=== PATIENT | male | born 1945 | race Caucasian/White ===

== ENCOUNTER 2018-12-23 22:46 | Observation (INO) ==
[2018-12-24] MEDS ORDERED: Sod Chloride 0.9% Inj 1,000 ML IV.SIG ONE (02:40)
--- NOTE | 2018-12-24 03:15 | CT ---
EXAM DATE: 12/24/2018 3:06 AM EST AGE/SEX: 73 years / Male INDICATIONS: Weakness, difficulty walking CLINICAL DATA: This is the patient's initial encounter. Patient reports that signs and symptoms have been present for 1 day and indicates a pain score of 0/10. MEDICAL/SURGICAL HISTORY: Carcinoma, bone. . BKA RADIATION DOSE: 60.45 CTDI (mGy) COMPARISON: No prior exams available for comparison. TECHNIQUE: CT of the head without contrast. Using automated exposure control and adjustment of the mA and/or kV according to patient size, radiation dose was kept as low as reasonably achievable to ob tain optimal diagnostic quality images. DICOM format image data is available electronically for revi ew and comparison. FINDINGS: Cerebrum: The ventricles are normal for age. No evidence of midline shift, mass lesion, hemorrhage or acute infarction. No extraaxial fluid collections are seen. Posterior Fossa: The cerebellum and brainstem are intact. The 4th ventricle is midline. The cerebe llopontine angle is unremarkable. Extracranial: The visualized portion of the orbits is intact. Skull: The calvaria is intact. No evidence of skull fracture. CONCLUSION: Negative CT Head non contrast. . . Electronically signed by: Dennis Herrera MD Board Certified Radiologist 12/24/2018 3:14 AM EST
--- NOTE | 2018-12-24 03:16 | ED ---
HPI General Chief complaint: Weakness Stated complaint: weakness since last night Time Seen by Provider: 12/24/18 02:40 Source: patient Mode of arrival: ambulatory Limitations: no limitations History of Present Illness HPI Narrative: 73-year-old male presents to the emergency department for evaluation of generalized weakness. According to the patient he was visiting a friend on Tuesday evening and while watching TV fell asleep on the couch he thinks around midnight. Patient reportedly slept overnight until approximately 4 PM or 6 PM on Tuesday. Patient noted when he tried to get up that his legs were weak and gave way on him. Patient states he had to crawl to gas bedroom where his friend helped him sit up on the bed. Patient was having difficulty holding a Coca-Cola bottle to drink a beverage. Patient reports that his friend told him that earlier in the morning she had tried to awaken him but he would not awaken or respond so she let him sleep longer. Patient states he is never had bilateral lower extremity or upper extremity weakness. Patient states that he was brought to the ED by his friend by car. 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 Patient states on and Tuesday he was experiencing severe phantom pain so took additional gabapentin. Tuesday night he took double his evening dose of gabapentin as well as his daily dose of methadone had been consumed his phenobarbital had been taken and did drink 2 beers. Patient had no recent febrile illness. Patient's had no recent respiratory illness. Patient denies any recent virus. Patient has been taking no antibiotics. Patient had no chest pain or shortness of breath. Patient has been somewhat depressed because his brother recently . Patient is intermittently tearful when he shares this information. Patient states that he has had no head trauma or neck or back injury. Patient does state however when he did try to stand up from the couch she did fall to his knees and then had to crawl to the bedroom. Patient has not stood since the initial identification of generalized weakness. Patient has urinated for the first time since Tuesday night here in the emergency department. Patient's had no bowel incontinence. Patient does not report any new numbness or tingling of the lower extremities and does not report any saddle anesthesia. Patient states he has had lumbar disc herniation in the past and does not have any back pain and has had no recent injury to his lower back. Patient states that his upper extremity weakness has improved while waiting to be seen. Patient reports he did require some assistance transferring from the wheelchair to the exam stretcher. MD Complaint: Reports generalized weakness, lack of energy and difficulty walking; Denies focal weakness, numbness and tingling Onset (ago): hour(s) (>24 hr) Duration: constant and improved Location: Reports generalized, LUE, RUE, LLE and RLE Migration: Reports none Severity: severe Severity scale (1-10): 7 Quality: Denies tingling, numbness, aching, crushing, sharp and dull Relieving factors: none Exacerbating factors: none Context: Reports depression (brother recently ); Denies new medication, recent illness, recent surgery, trauma/injury and history of similar Associated symptoms: Reports other (took extra neurontin, drank alcohol is chronically prescribed methadone and phenobarbital); Denies chest pain, confusion, dark stools, diaphoresis, dysuria, easy bruising, fever/chills, headaches, loss of appetite, nausea/vomiting, myalgias, rash, shortness of breath and syncope Related Data Home Medications Medication Instructions Recorded Confirmed amlodipine 5 mg PO DAILY 12/24/18 12/24/18 aspirin [Aspir-81] 81 mg PO DAILY 12/24/18 12/24/18 finasteride 5 mg PO DAILY 12/24/18 12/24/18 gabapentin 600 mg PO TID 12/24/18 12/24/18 meloxicam 7.5 mg PO DAILY 12/24/18 12/24/18 methadone 10 mg PO TID 12/24/18 12/24/18 mirtazapine See Label Instructions .ROUTE 12/24/18 12/24/18 .COMPLEX niacin 500 mg PO DAILY 12/24/18 12/24/18 phenobarbital 64.8 mg PO BID 12/24/18 12/24/18 ramipril 10 mg PO BID 12/24/18 12/24/18 Allergies Allergy/AdvReac Type Severity Reaction Status Date / Time Penicillins Allergy Rash Verified 12/24/18 02:40 Review of Systems ROS: all other systems reviewed are negative [facility] Medical History Medical History History of bone cancer (Acute) History of herniated intervertebral disc (Acute) History of high blood pressure (Acute) Hx of right BKA (Acute) Surgical History Surgical History History of back surgery (Acute) History of orthopedic surgery (Acute) Social History Social History Substance History: No History of Abuse Smoking Status: Former smoker Tobacco Type: Cigarettes How Often Do You Have a Drink Containing Alcohol: 2 to 3 times a week Recent Travel in [facility] within the Last 8 Weeks: No Recent Out of Country Travel within the Last 8 Weeks: No Immunization History Tetanus Immunization: >5 Years Exam Narrative Exam Narrative: GENERAL: Well-developed well-nourished male no acute distress no respiratory distress GCS of 15 SKIN: Focused skin assessment warm/dry. HEAD: Atraumatic. Normocephalic. EYES: Pupils equal and round. No scleral icterus. No injection or drainage. ENT: No nasal bleeding or discharge. Mucous membranes pink and moist. NECK: Trachea midline. No JVD. CARDIOVASCULAR: Regular rate and rhythm. No murmur appreciated. RESPIRATORY: No accessory muscle use. Clear to auscultation. Breath sounds equal bilaterally. GASTROINTESTINAL: Abdomen soft, non-tender, nondistended. Hepatic and splenic margins not palpable. MUSCULOSKELETAL: No obvious deformities. No clubbing. No cyanosis. No edema. NEUROLOGICAL: Awake and alert. GCS 15. No obvious cranial nerve deficits. Motor grossly within normal limits. No pronator drift. Sensory exam intact as tested. Normal speech. PSYCHIATRIC: Appropriate mood and affect; insight and judgment normal. Course Initial Documented Vital Signs Temperature 99.7 F H 12/23/18 23:55 Pulse Rate 61 12/23/18 23:55 Respiratory Rate 18 12/23/18 23:55 Blood Pressure 136/60 12/23/18 23:55 Last Documented Vital Signs Temperature 99.7 F H 12/23/18 23:55 Pulse Rate 61 12/23/18 23:55 Respiratory Rate 18 12/23/18 23:55 Blood Pressure 136/60 12/23/18 23:55 Pulse Oximetry 95 12/24/18 04:09 Critical Care Time Critical Care Time: Yes Total Critical Care Time: 30 Attestation: Aggregate critical care time was 30 minutes. Time to perform other separately billable procedures was not included in the critical care time. My time did not include minutes spent treating any other patients simultaneously or on activities that did not directly contribute to the patient's treatment. The services I provided to this patient were to treat and/or prevent clinically significant deterioration that could result in: Arrhythmia, respiratory failure , I provided critical care services requiring my management, as noted below: Chart data review, documentation time, medication orders and management, vital sign assessments/reviewing monitor data, ordering and reviewing lab tests, ordering and interpreting/reviewing x-rays and diagnostic studies, care of the patient and discussion of the patient with the admitting physicians. Medical Decision Making MDM Narrative Medical decision making narrative: [facility] service for observation admission for generalized weakness that appears to be slightly improving per patient's -zjyw-gui male with new onset generalized weakness that seems to be only slightly improved since arrival to the emergency department. Patient does admit to taking extra Neurontin last evening before onset of symptoms. 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 Patient had no trauma or injury. Patient denies any low back pain consistent with his history of herniated disc disease no lower extremity paresthesias or saddle anesthesia. Patient had no recent febrile illness. Patient had no previous history of similar type weakness. Patient had no recent illness or viral illness. Does not note symptoms to be ascending in nature or descending in nature. At times symptoms seem to be intermittent or sporadic. No prior history of MS. IV access obtained specimens collected and sent for resulting imaging studies ordered. Denies seizure and friend with no witness of seizure although was not with him the whole time. CT brain noncontrast reveals no acute abnormality chest x-ray is normal CBC with automated differential total white cell count is in normal range 7300 with hemoglobin of 12.8 and platelet count normal at 229,000 with normal automated differential chemistries remarkable for acute renal insufficiency BUN of 30 and a creatinine of 1.70 bicarb is normal potassium calcium magnesium values are normal range Serum ammonia level is not elevated. Lactic acid 1.0, not elevated TSH: 1.950, not elevated Troponin I less than 0.02, not elevated; CK total is elevated at 535 however MB percent is only 2.4% this is not elevated; EKG is normal sinus rhythm rate [address] elevation injury pattern or ectopy noted artifact is present at baseline Urinalysis normal Urine drug screen positive for barbiturates patient does take phenobarbital Serum alcohol less than 3 Phenobarbital level remains pending Patient's case discussed with and possible exposure to polypharmacy; may need neurology consult and MR imaging of the brain and spine. Medical Screen Exam Complete: Yes Emergency Medical Condition: Yes Differential Diagnosis Differential Diagnosis: Generalized weakness, CVA, TIA, transverse myelitis, myasthenia gravis, multiple sclerosis, polypharmacy, depression, dehydration, MERCEDES, rhabdomyolysis Medical Records no prior visits Lab Data Lab results reviewed: Yes I reviewed the patient's lab results. Result diagrams: 12/24/18 03:10 12/24/18 03:10 Lab Results 12/24/18 12/24/18 12/24/18 Range/Units 02:45 02:45 03:10 CBC w Diff Auto diff final WBC 7.3 (4.0-11.0) th/mm3 RBC 4.17 L (4.50-5.90) mil/mm3 Hgb 12.8 L (13.0-17.0) gm/dL Hct 38.3 L (39.0-51.0) % MCV 91.9 (80.0-100.0) fL MCH 30.6 (27.0-34.0) pg MCHC 33.3 (32.0-36.0) % RDW 11.6 (11.6-17.2) % Plt Count 229 (150-450) th/mm3 MPV 8.1 (7.0-11.0) fL Neut % (Auto) 61.0 (16.0-70.0) % Lymph % (Auto) 28.7 (9.0-44.0) % [place] % (Auto) 7.1 (0.0-8.0) % Eos % (Auto) 2.4 (0.0-4.0) % Baso % (Auto) 0.8 (0.0-2.0) % Neut # (Auto) 4.4 (1.8-7.7) th/mm3 Lymph # (Auto) 2.1 (1.0-4.8) th/mm3 [place] # (Auto) 0.5 (0.0-0.9) th/mm3 Eos # (Auto) 0.2 (0.0-0.4) th/mm3 Baso # (Auto) 0.1 (0.0-0.2) th/mm3 WBC Differential . Differential Comment . Sodium (136-145) meq/L Potassium (3.5-5.1) meq/L Chloride (98-107) meq/L Carbon Dioxide (21.0-32.0) meq/L Anion Gap (5-15) meq/L BUN (7-18) mg/dL Creatinine (0.60-1.30) mg/dL Estimated GFR (>89) mL/min Random Glucose (74-106) mg/dL Lactic Acid (0.4-2.0) mmol/L Calcium (8.5-10.1) mg/dL Magnesium (1.5-2.5) mg/dL Total Bilirubin (0.2-1.0) mg/dL AST (15-37) U/L ALT (12-78) U/L Alkaline Phosphatase (45-117) U/L Ammonia (11-32) mcmol/L Total Creatine Kinase (39-308) U/L CK-MB (CK-2) (0.5-3.6) ng/mL CK-MB (CK-2) % (0.0-4.0) % Troponin I (0.02-0.05) ng/mL Total Protein (6.4-8.2) g/dL Albumin (3.4-5.0) g/dL TSH (0.358-3.740) uIU/mL Urine Color Yellow (Yellw/Straw) Urine Clarity Clear (Clear) Urine pH 5.5 (5.0-8.5) Ur Specific [place] Greater/equal 1.030 (1.002-1.035) Urine Protein Negative (Neg-Trace) mg/dL Urine Glucose (UA) Negative (Negative) mg/dL Urine Ketones Trace H (Negative) mg/dL Urine Occult Blood Negative (Negative) Urine Nitrate Negative (Negative) Urine Bilirubin Negative (Negative) Urine Urobilinogen 0.2 (Less than 2) mg/dL Ur Leukocyte Esterase Negative (Negative) Urine WBC 0-5 (0-5) /hpf Amorphous Sediment Few H (None) /hpf Urine Bacteria Few H (None) /hpf Hyaline Casts 4-10 H (0-3) /lpf Urine Mucus Moderate H (Occasional) /lpf Micro UA Comment Culture not ind Ur Microscopic Review Microscopic reviewed Urine Culture Comments Culture not ind Urine Opiates Screen Neg (Neg) Ur Barbiturates Screen Pos H (Neg) Ur Amphetamines Screen Neg (Neg) Phenobarbital (15.0-40.0) mcg/mL U Benzodiazepines Scrn Neg (Neg) Urine Cocaine Screen Neg (Neg) U Cannabinoids Screen Neg (Neg) Serum Alcohol (0-5) mg/dL 12/24/18 12/24/18 12/24/18 Range/Units 03:10 03:10 03:10 CBC w Diff WBC (4.0-11.0) th/mm3 RBC (4.50-5.90) mil/mm3 Hgb (13.0-17.0) gm/dL Hct (39.0-51.0) % MCV (80.0-100.0) fL MCH (27.0-34.0) pg MCHC (32.0-36.0) % RDW (11.6-17.2) % Plt Count (150-450) th/mm3 MPV (7.0-11.0) fL Neut % (Auto) (16.0-70.0) % Lymph % (Auto) (9.0-44.0) % [place] % (Auto) (0.0-8.0) % Eos % (Auto) (0.0-4.0) % Baso % (Auto) (0.0-2.0) % Neut # (Auto) (1.8-7.7) th/mm3 Lymph # (Auto) (1.0-4.8) th/mm3 [place] # (Auto) (0.0-0.9) th/mm3 Eos # (Auto) (0.0-0.4) th/mm3 Baso # (Auto) (0.0-0.2) th/mm3 WBC Differential Differential Comment Sodium 134 L (136-145) meq/L Potassium 4.3 (3.5-5.1) meq/L Chloride 102 (98-107) meq/L Carbon Dioxide 26.5 (21.0-32.0) meq/L Anion Gap 6 (5-15) meq/L BUN 30 H (7-18) mg/dL Creatinine 1.70 H (0.60-1.30) mg/dL Estimated GFR 40 L (>89) mL/min Random Glucose 86 (74-106) mg/dL Lactic Acid 1.0 (0.4-2.0) mmol/L Calcium 8.3 L (8.5-10.1) mg/dL Magnesium 2.4 (1.5-2.5) mg/dL Total Bilirubin 0.4 (0.2-1.0) mg/dL AST 23 (15-37) U/L ALT 25 (12-78) U/L Alkaline Phosphatase 181 H (45-117) U/L Ammonia 26 (11-32) mcmol/L Total Creatine Kinase 535 H (39-308) U/L CK-MB (CK-2) 13.1 H (0.5-3.6) ng/mL CK-MB (CK-2) % 2.4 (0.0-4.0) % Troponin I Less than 0.02 L (0.02-0.05) ng/mL Total Protein 7.8 (6.4-8.2) g/dL Albumin 4.0 (3.4-5.0) g/dL TSH 1.950 (0.358-3.740) uIU/mL Urine Color (Yellw/Straw) Urine Clarity (Clear) Urine pH (5.0-8.5) Ur Specific [place] (1.002-1.035) Urine Protein (Neg-Trace) mg/dL Urine Glucose (UA) (Negative) mg/dL Urine Ketones (Negative) mg/dL Urine Occult Blood (Negative) Urine Nitrate (Negative) Urine Bilirubin (Negative) Urine Urobilinogen (Less than 2) mg/dL Ur Leukocyte Esterase (Negative) Urine WBC (0-5) /hpf Amorphous Sediment (None) /hpf Urine Bacteria (None) /hpf Hyaline Casts (0-3) /lpf Urine Mucus (Occasional) /lpf Micro UA Comment Ur Microscopic Review Urine Culture Comments Urine Opiates Screen (Neg) Ur Barbiturates Screen (Neg) Ur Amphetamines Screen (Neg) Phenobarbital 21.9 (15.0-40.0) mcg/mL U Benzodiazepines Scrn (Neg) Urine Cocaine Screen (Neg) U Cannabinoids Screen (Neg) Serum Alcohol Less than 3 (0-5) mg/dL Imaging Data Radiologist's impression: Head CT 12/24/18 02:40 CONCLUSION: Negative CT Head non contrast. . . Chest X-Ray 12/24/18 04:30 CONCLUSION: No acute disease ECG Data EKG Prior to Arrival: No Attestation: I personally reviewed and interpreted this ECG as follows: (EKG: Normal sinus rhythm rate [address] elevation injury pattern or ectopy noted artifact is present at baseline) Discharge Plan Discharge Disposition Patient Disposition: ED Admit(ED Internal Use Only) Discharge Condition Condition: Stable Discharge Order Discharge Orders: ED Use Only Admit Order (Routine); Ordered 12/24/18 Ordered By: Carly Do Discharge Details Diagnosis: Generalized muscle weakness, Renal insufficiency, At risk for polypharmacy Physicians Team ED Provider: Carly Do Attending Provider: Myron Pringle Status ED Status: Admitted Observation Patient
[2018-12-24 03:24] LABS: Bilirubin,Urine Negative (Negative); Clarity,Urine Clear (Clear); Color,Urine Yellow (Yellw/Straw); Glucose,Urine (UA) Negative (Negative); Leukocyte Esterase,Urine Negative (Negative); Nitrite,Urine Negative (Negative); PH,Urine 5.5 (5.0-8.5); Specific Gravity,Urine Greater/Equal 1.030 (1.002-1.035); Urobilinogen,Urine 0.2 mg/dL (Less than 2)
[2018-12-24 03:30] LABS: Chloride 102 meq/L (98-107); Potassium 4.3 meq/L (3.5-5.1); Sodium 134 meq/L (136-145)
[2018-12-24 03:31] LABS: Cocaine Screen,Urine Neg (Neg)
[2018-12-24 03:33] LABS: Baso # (Auto) 0.1 th/mm3 (0.0-0.2); Baso % (Auto) 0.8 % (0.0-2.0); Calcium 8.3 mg/dL (8.5-10.1); Eos # (Auto) 0.2 th/mm3 (0.0-0.4); Eos % (Auto) 2.4 % (0.0-4.0); Hematocrit 38.3 % (39.0-51.0); Hemoglobin 12.8 gm/dL (13.0-17.0); Lymph # (Auto) 2.1 th/mm3 (1.0-4.8); Lymph % (Auto) 28.7 % (9.0-44.0); Mean Corpuscular HGB Conc 33.3 % (32.0-36.0); Mean Corpuscular Hemoglobin 30.6 pg (27.0-34.0); Mean Corpuscular Volume 91.9 fL (80.0-100.0); Mean Platelet Volume 8.1 fL (7.0-11.0); Mono # (Auto) 0.5 th/mm3 (0.0-0.9); Mono % (Auto) 7.1 % (0.0-8.0); Neut # (Auto) 4.4 th/mm3 (1.8-7.7); Platelet Count 229 th/mm3 (150-450); Red Blood Count 4.17 mil/mm3 (4.50-5.90); Red Cell Distribution Width 11.6 % (11.6-17.2); White Blood Count 7.3 th/mm3 (4.0-11.0)
[2018-12-24 03:33] LABS: Amorphous Sediment,Urine Few /hpf; Bacteria,Urine Few /hpf; WBC,Urine 0-5 /hpf (0-5)
[2018-12-24 03:34] LABS: Mucus,Urine Moderate /lpf (Occasional)
[2018-12-24 03:34] LABS: Anion Gap 6 meq/L (5-15); Blood Urea Nitrogen 30 mg/dL (7-18); Carbon Dioxide 26.5 meq/L (21.0-32.0); Glucose,Random 86 mg/dL (74-106); Magnesium 2.4 mg/dL (1.5-2.5)
[2018-12-24 03:37] LABS: Alanine Aminotransferase 25 U/L (12-78); Aspartate Aminotransferase 23 U/L (15-37); Glomerular Filtration Rate 40 mL/min (>89)
[2018-12-24 03:38] LABS: Total Protein 7.8 g/dL (6.4-8.2)
[2018-12-24 03:39] LABS: Alkaline Phosphatase 181 U/L (45-117); Creatine Kinase 535 U/L (39-308)
[2018-12-24 03:39] LABS: Amphetamine Screen,Urine Neg (Neg)
[2018-12-24 03:41] LABS: Barbiturate Screen,Urine Pos (Neg)
[2018-12-24 03:46] LABS: Cannabinoid Screen,Urine Neg (Neg)
[2018-12-24 03:47] LABS: Opiate Screen,Urine Neg (Neg)
[2018-12-24 04:18] LABS: CKMB Percent 2.4 % (0.0-4.0); Creatine Kinase MB 13.1 ng/mL (0.5-3.6)
[2018-12-24] MEDS ORDERED: Sod Chloride 0.9% Inj 1,000 ML IV.SIG SCH ×2 (04:30→05:30)
--- NOTE | 2018-12-24 05:07 | XR ---
EXAM DATE: 12/24/2018 4:50 AM EST AGE/SEX: 73 years / Male INDICATIONS: Syncope. Hypertension. CLINICAL DATA: This is the patient's initial encounter. Patient reports that signs and symptoms have been present for 3 days and indicates a pain score of 0/10. MEDICAL/SURGICAL HISTORY: Hypertension. None. COMPARISON: No prior exams available for comparison. FINDINGS: A single AP view of the chest demonstrates the lungs to be symmetrically aerated without evidence of mass, infiltrate or effusion. The cardiomediastinal contours are unremarkable. Osseous structures a re intact. CONCLUSION: No acute disease Electronically signed by: Dennis Herrera MD Board Certified Radiologist 12/24/2018 5:06 AM EST
[2018-12-24] MEDS ORDERED: Bisacodyl 10 MG Supp RECTAL PRN (06:03)
[2018-12-24] MEDS ORDERED: Acetaminophen 325 MG Tablet PO PRN (06:03)
--- NOTE | 2018-12-24 08:43 | ECG ---
Date Performed: 12/24/2018 Time Performed: 02:48:58 PTAGE: 73 years EKG: Baseline artifact present Sinus rhythm NORMAL ECG NO PREVIOUS TRACING DOCTOR: Joce Araiza Interpretating Date/Time 12/24/2018 08:43:37
[2018-12-24] MEDS ORDERED: amLODIPine 5 MG Tablet PO SCH (09:00)
[2018-12-24] MEDS ORDERED: Ramipril 5 MG Capsule PO SCH (09:00)
[2018-12-24] MEDS ORDERED: Finasteride 5 MG Tablet PO SCH (09:00)
[2018-12-24] MEDS ORDERED: Gabapentin 300 MG Capsule PO SCH ×2 (09:00→21:00)
[2018-12-24] MEDS ORDERED: Meloxicam 7.5 MG Tablet PO SCH (10:00)
[2018-12-24 13:57] VITALS: BP 134/57; PULSE 63; RESP 20; TEMP 98.9; O2SAT 94
--- NOTE | 2018-12-24 20:15 | P.HPIM ---
History of Present Illness Primary Care Physician: Kenrick Choi Chief Complaint: Hypersomulance, Muscle Weakness History of Present Illness: Mr. Masters is a 73-year-old male. He reports that he was staying with a friend in this area but he is from [place]. When he came here he was feeling fine. He has been under a lot of stress and has not been sleeping well recently as his brother approximately 1-2 weeks ago. 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 He takes gabapentin 600 mg 3 times daily at baseline. Occasionally he will have an exacerbation of his radiculopathic pain. When this occurs he will take extra doses of gabapentin. Last night he was having these pains and he took 3 gabapentin pills at once which should give him 1800 mg. 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 He also had 2 beers. After this he slept about 18 hours. When he awoke and tried to stand he was weak. He fell twice. The friend he was staying with made him come to the hospital. He came in the hospital yesterday night. Overnight he rested again and this morning he walked around with physical therapy and was at baseline. Etiology for his condition is suspected to be related to multifactorial combination of alcohol combined with excessive gabapentin and possible decreased clearance of methadone. As he has returned back to baseline with no further deficits he is medically stable and cleared for discharge home today. Review of Systems Constitutional: No fevers, no chills no night sweats, no fatigue, weakness, hypersomnolence Eyes: No eye pain, no blurry vision, no loss of vision ENT: No sore throat, no ear pain, no rhinorrhea Cardiovascular: No chest pain, no tachycardia, no palpitations, no syncope Respiratory: No wheezing, no cough, no shortness of breath Gastrointestinal: No abdominal pain, no black tarry stools, no bright red blood per rectum, no vomiting, no diarrhea Musculoskeletal: No joint pain, no muscle cramps, no stiffness Integumentary: No rash, no ulcers, no drainage Neurologic: No sensory loss, no loss of motor function, no dizziness Psychiatric: No behavioral changes, no hallucinations, no suicidal ideations [facility] Medical History Medical History History of bone cancer (Acute) History of herniated intervertebral disc (Acute) History of high blood pressure (Acute) Hx of right BKA (Acute) Surgical History Surgical History History of back surgery (Acute) History of orthopedic surgery (Acute) Family History Family History Other Osteoarthritis Social History Social History Substance History: No History of Abuse Second Hand Smoke Exposure: No Smoking Status: Never smoker Tobacco Type: Cigarettes How Often Do You Have a Drink Containing Alcohol: 2 to 3 times a week Recent Travel in [facility] within the Last 8 Weeks: No Recent Out of Country Travel within the Last 8 Weeks: No Immunization History Tetanus Immunization: >5 Years Medications and Allergies Allergies Allergy/AdvReac Type Severity Reaction Status Date / Time Penicillins Allergy Rash Verified 12/24/18 02:40 Home Medications Medication Instructions Recorded Confirmed Type amlodipine 5 mg PO DAILY 12/24/18 12/24/18 History aspirin [Aspir-81] 81 mg PO DAILY 12/24/18 12/24/18 History finasteride 5 mg PO DAILY 12/24/18 12/24/18 History gabapentin 600 mg PO TID 12/24/18 12/24/18 History meloxicam 7.5 mg PO DAILY 12/24/18 12/24/18 History methadone 10 mg PO TID 12/24/18 12/24/18 History mirtazapine See Label Instructions .ROUTE 12/24/18 12/24/18 History .COMPLEX niacin 500 mg PO DAILY 12/24/18 12/24/18 History phenobarbital 64.8 mg PO BID 12/24/18 12/24/18 History ramipril 10 mg PO BID 12/24/18 12/24/18 History Physical Exam Vital signs: Vital Signs 12/23/18 23:55 12/24/18 04:09 12/24/18 06:02 Temperature 99.7 F H Pulse Rate 61 67 Respiratory Rate 18 16 Blood Pressure 136/60 140/66 Pulse Oximetry 95 97 12/24/18 07:15 12/24/18 08:00 12/24/18 12:00 Temperature 99.2 F 99.7 F H 98.9 F Pulse Rate 74 73 63 Respiratory Rate 16 22 20 Blood Pressure 159/57 H 167/68 H 134/57 L Pulse Oximetry 97 92 L 94 L Intake & Output 12/24/18 12/24/18 12/25/18 06:59 18:59 06:59 Intake Total 3000 / 3000 240 / 240 Output Total 470 / 470 180 / 180 Balance 2530 / 2530 60 / 60 Weight 100 kg Intake: IV 3000 / 3000 NS Inj 1,000 ML @ 1000 mls/hr 3000 / 3000 IV.SIG BOLUS JENNY Rx#:[id number] Oral 240 / 240 Output: Urine 470 / 470 180 / 180 Narrative: GENERAL: NAD, A&Ox3 HEAD: Normocephalic. NECK: Supple, trachea midline. No lymphadenopathy. EYES: No scleral icterus. No injection or drainage. CARDIOVASCULAR: Regular rate and rhythm without murmurs, gallops, or rubs. RESPIRATORY: Breath sounds equal bilaterally. No accessory muscle use. GASTROINTESTINAL: Abdomen soft, non-tender, nondistended. MUSCULOSKELETAL: No cyanosis, or edema. BKA right lower extremity. SKIN: Warm and dry. NEURO: No focal neurological deficits. Results Labs CBC & Chem 7: 12/24/18 03:10 12/24/18 03:[address] 12/24/18 02:40 CONCLUSION: Negative CT Head non contrast. . . Chest X-Ray 12/24/18 04:30 CONCLUSION: No acute disease Caprini VTE Risk Assessment Caprini VTE Risk Assessment: No/Low Risk (score <= 1) Caprini Risk Assessment Model: Point Value = 1 Point Value = 2 Point Value = 3 Point Value = 5 Age 41-60 Minor surgery BMI > 25 kg/m2 Swollen legs Varicose veins or History of unexplained or recurrent spontaneous Oral contraceptives or hormone replacement Sepsis (< 1 month) Serious lung disease, including pneumonia (< 1 month) Abnormal pulmonary function Acute myocardial infarction Congestive heart failure (< 1 month) History of inflammatory bowel disease Medical patient at bed rest Age 61-74 Arthroscopic surgery Major open surgery (> 45 min) Laparoscopic surgery (> 45 min) Malignancy Confined to bed (> 72 hours) Immobilizing plaster cast Central venous access Age >= 75 History of VTE Family history of VTE Factor V Leiden Prothrombin [id number] Lupus anticoagulant Anticardiolipin antibodies Elevated serum homocysteine Heparin-induced thrombocytopenia Other congenital or acquired thrombophilia Stroke (< 1 month) Elective arthroplasty Hip, pelvis, or leg fracture Acute spinal cord injury (< 1 month) Prophylaxis Regimen: Total Risk Factor Score Risk Level Prophylaxis Regimen 0-1 Low Early ambulation 2 Moderate Order ONE of the following: *Sequential Compression Device (SCD) *Heparin 5000 units SQ BID 3-4 Higher Order ONE of the following medications: *Heparin 5000 units SQ TID *Enoxaparin/Lovenox 40 mg SQ daily (WT < 150 kg, CrCl > 30 mL/min) *Enoxaparin/Lovenox 30 mg SQ daily (WT < 150 kg, CrCl > 10-29 mL/min) *Enoxaparin/Lovenox 30 mg SQ BID (WT < 150 kg, CrCl > 30 mL/min) AND/OR *Sequential Compression Device (SCD) 5 or more Highest Order ONE of the following medications: *Heparin 5000 units SQ TID (Preferred with Epidurals) *Enoxaparin/Lovenox 40 mg SQ daily (WT < 150 kg, CrCl > 30 mL/min) *Enoxaparin/Lovenox 30 mg SQ daily (WT < 150 kg, CrCl > 10-29 mL/min) *Enoxaparin/Lovenox 30 mg SQ BID (WT < 150 kg, CrCl > 30 mL/min) AND *Sequential Compression Device (SCD) Assessment and Plan Plan 73-year-old male admitted secondary to hypersomnolence and motor weakness Hypersomnolence Motor weakness Poly-pharmacy Gabapentin excess/overdose (unintentional) Improved through time Patient counseled on more caution with medication intake Patient cautioned on alcohol use with his current medications History of bone cancer History of right BKA Right lower extremity radiculopathy/neuropathy Follow as an outpatient Hypertension Continue baseline treatment Follow blood pressures Adjust treatments as needed DVT prophylaxis Ambulation Discharge planning Patient has improved overnight and is medically stable for discharge home today H&P: Quality VTE Deep Vein Thrombosis/Pulmonary Embolism Present on Admission: No
[2018-12-24] MEDS ORDERED: Mirtazapine 15 MG Tablet PO SCH (21:00)
== END 2018-12-24 15:18 | disposition home or self-care (01) ==
LOC: PHED 22:46 → PHEDA 22:46 → PH3 12-24 08:10
PROVIDERS: ADMIT Hospitalist; ATTEND Hospitalist
DX: Z87.891 Personal history of nicotine dependence; M54.16 Radiculopathy, lumbar region; G54.6 Phantom limb syndrome with pain; Z79.82 Long term (current) use of aspirin; Z85.830 Personal history of malignant neoplasm of bone; Z79.899 Other long term (current) drug therapy; G47.10 Hypersomnia, unspecified; Z89.511 Acquired absence of right leg below knee; R53.1 Weakness; I10 Essential (primary) hypertension
CPT/HCPCS: 70450; 71010; 71045; 80053; 80184; 80307; 81001; 82140; 82550; 82552; 83605; 83735; 84443; 84484; 85025; 87040; 90760; 90761; 93005; 96360; 96361; 97162; 99291; G0378; G8987; G8988; J7030